=== PATIENT | female | born 1950 | race Caucasian/White ===

== ENCOUNTER → 2019-02-26 | Outpatient (CLI) | payer MEDICARE ==
[~2019-02-26] MED LIST: DULO30 PO; ESTR1; ETOD400 PO; LEVSOD25; MELATONIN 1 MG1 EACH; PROACE100 PO; RXPROACE PO; Synthroid/Lev0.15 MG PO; ZORVOLEX35 MG PO
== END | disposition home or self-care (01) ==
LOC: LAB SHORT 10:46 → LAB 10:46
DX: R30.9 Painful micturition, unspecified (principal)
CPT/HCPCS: 87077; 87086; 87186

== ENCOUNTER → 2019-04-17 | Outpatient (CLI) | payer MEDICARE | LOC: LAB SHORT 17:46 → LAB 17:46 | DX: R30.0 Dysuria (principal) | CPT/HCPCS: 87077; 87086; 87186 ==

== ENCOUNTER → 2019-06-22 | Outpatient (CLI) | payer MEDICARE | END | disposition home or self-care (01) | LOC: LAB 19:36 → LAB SHORT 19:36 | DX: R82.79 Other abnormal findings on microbiological examination of urine (principal) | CPT/HCPCS: 87077; 87086; 87186 ==

== ENCOUNTER → 2020-12-17 | Outpatient (CLI) | payer MEDICARE ==
[2020-12-18 14:06] LABS: Stool Occult Bld Immuno 1 Negative (NEGATIVE)
== END | disposition home or self-care (01) ==
LOC: LAB SHORT 07:00
PROVIDERS: Family Medicine
DX: Z12.11 Encounter for screening for malignant neoplasm of colon (principal)
CPT/HCPCS: G0328

== ENCOUNTER 2021-03-13 10:14 | Day surgery (SDC) | payer MEDICARE ==
[~2021-03-13] VITALS: Ht 160 cm; Wt 86.9 kg
== END 2021-03-13 12:40 | disposition home or self-care (01) ==
LOC: ORSCSDS 10:14
PROVIDERS: Internal Medicine Gastroenterology
PROC: 0DBN8ZX Excision of Sigmoid Colon, Via Natural or Artificial Opening Endoscopic, Diagnostic (ICD-10-PCS; principal; 2021-03-13 11:30)
DX: Z12.11 Encounter for screening for malignant neoplasm of colon (principal); Z86.010 Personal history of colon polyps; K63.5 Polyp of colon; K57.32 Diverticulitis of large intestine without perforation or abscess without bleeding; K64.8 Other hemorrhoids; Z87.891 Personal history of nicotine dependence; E66.01 Morbid (severe) obesity due to excess calories; Z68.34 Body mass index [BMI] 34.0-34.9, adult; Z79.899 Other long term (current) drug therapy
CPT/HCPCS: 88305; J0461; J2405; J2704; J7120

== ENCOUNTER 2021-04-12 09:36 | Emergency (ER) | payer MEDICARE ==
[~2021-04-12] VITALS: Ht 160 cm; Wt 90.7 kg
[~2021-04-12 09:36] MED LIST changes: +EUTHYROX125 MCG PO; -Synthroid/Lev0.15 MG PO
[2021-04-12 10:50] LABS: BASOPHILS ABSOLUTE AUTO 0.05 K/mm3 (0.00-0.23); BASOPHILS PERCENT AUTO 1 % (0-2); EOSINOPHILS ABSOLUTE AUTO 0.07 K/mm3 (0.00-0.68); EOSINOPHILS PERCENT AUTO 1 % (0-6); Hematocrit 39.1 % (33.0-51.0); Hemoglobin 12.6 g/dL (11.5-16.0); IMMATURE GRAN ABSOLUTE AUTO 0.04 K/mm3 (0.00-0.10); IMMATURE GRAN PERCENT AUTO 1 % (0-1); LYMPHOCYTES ABSOLUTE AUTO 1.61 K/mm3 (0.84-5.20); LYMPHOCYTES PERCENT AUTO 23 % (21-46); MONOCYTES ABSOLUTE AUTO 0.54 K/mm3 (0.16-1.47); MONOCYTES PERCENT AUTO 8 % (4-13); Mean Corpuscular HGB Conc 32.2 g/dL (31.5-36.5); Mean Corpuscular Volume 90 fL (80-100); Mean Platelet Volume 9.3 fL (9.1-12.4); NEUTROPHILS ABSOLUTE AUTO 4.84 K/mm3 (1.96-9.15); NEUTROPHILS PERCENT AUTO 68 % (41-73); Platelet Count 282 K/mm3 (150-400); RDW Standard Deviation 45.9 fL (35.1-46.3); Red Blood Cell Count 4.35 M/mm3 (3.80-5.20); White Blood Cell Count 7.15 K/mm3 (4.00-11.30)
[2021-04-12 11:09] LABS: Alanine Aminotransfer (ALT/SGP 29 U/L (12-78); Albumin, Blood 4.1 g/dL (3.4-5.0); Albumin/Globulin Ratio 1.2 (0.8-1.8); Alk Phos 87 U/L (50-136); Anion Gap 4 mmol/L (6-16); Aspartate Aminotrans (AST/SGOT 17 U/L (12-37); Bilirubin, Total 0.8 mg/dL (0.1-1.0); Blood Urea Nitrogen 21 mg/dL (8-24); Bun/Creatinine Ratio 28.2 (12.0-20.0); CO2, Blood 27 mmol/L (21-32); Calcium, Blood 9.4 mg/dL (8.5-10.1); Chloride, Blood 109 mmol/L (98-108); Creatinine, Blood 0.74 mg/dL (0.40-1.00); Globulin, Blood 3.5 g/dL (2.2-4.0); Glomerular Filtration Rate >60 (60-); Glucose, Blood 101 mg/dL (70-99); Sodium, Blood 140 mmol/L (136-145); Total Protein, Blood 7.6 g/dL (6.4-8.2)
== END 2021-04-12 14:47 | disposition home or self-care (01) ==
LOC: ER 09:36
PROVIDERS: Physician Assistant
DX: I10 Essential (primary) hypertension (principal); Z88.2 Allergy status to sulfonamides; Z79.899 Other long term (current) drug therapy; Z88.0 Allergy status to penicillin; Z88.8 Allergy status to other drugs, medicaments and biological substances; Z88.1 Allergy status to other antibiotic agents
CPT/HCPCS: 36415; 71045; 80053; 84484; 85025; 93005; 93010; 99284-25

== ENCOUNTER → 2022-01-09 | Outpatient (CLI) | payer MEDICARE | END | disposition home or self-care (01) | LOC: LAB SHORT 15:00 → PLD 15:00 | DX: D22.5 Melanocytic nevi of trunk (principal); D03.39 Melanoma in situ of other parts of face | CPT/HCPCS: 88305 ==

== ENCOUNTER 2024-05-09 10:39 | Day surgery (SDC) | payer MEDICARE ==
[~2024-05-09] VITALS: Ht 160 cm; Wt 91.4 kg
[~2024-05-09 10:39] MED LIST changes: +Lactated Ringer's 1,000 ML IV ONE
[2024-05-09] MEDS ORDERED: Tranexamic Acid 100 ML IV ONE (10:40)
[2024-05-09] MEDS ORDERED: Lidocaine 2%-Epineph 1:200000 20 ML SDV ONE (10:51)
[2024-05-09] MEDS ORDERED: EPINEPhrine HCl 1 MG / ML 30ML Vial ONE (10:51)
[2024-05-09] MEDS ORDERED: CYMBALTA20 M2 PO (11:06)
[2024-05-09] MEDS ORDERED: MELATONIN (11:06)
[2024-05-09] MEDS ORDERED: LOSARTAN POTASS25 M2 PO (11:06)
[2024-05-09] MEDS ORDERED: VITAMIN B350 MG (11:07)
[2024-05-09] MEDS ORDERED: CENTRUM SILVER1 EAC2 PO (11:07)
[2024-05-09] MEDS ORDERED: VITAMIN B12500 MCG (11:07)
[2024-05-09] MEDS ORDERED: CALCIUM (11:08)
[2024-05-09] MEDS ORDERED: FentaNYL Citrate 50 MCG/ML 2 ML Injection ONE ×2 (11:12→12:02)
[2024-05-09] MEDS ORDERED: propofoL 20 ML IV ONE (11:12)
[2024-05-09] MEDS ORDERED: Lactated Ringer's 1,000 ML IV ONE (11:18)
[2024-05-09] MEDS ORDERED: Dexamethasone Sod Phos 10 MG/ML 1ML VIAL ONE (11:39)
[2024-05-09] MEDS ORDERED: Ketorolac Tromethamine 30mg Vial ONE (11:57)
[2024-05-09] MEDS ORDERED: Ondansetron HCl 2 MG / ML 2ML Vial ONE (12:02)
[2024-05-09] MEDS ORDERED: Sugammadex Sodium 200 MG/2ML SDV (100 MG/ML) ONE (12:05)
[2024-05-09] MEDS ORDERED: Naloxone HCl 0.4MG / ML 1ML Vial ONE (12:17)
--- NOTE | 2024-05-09 13:11 | NUR ---
05/09/24 1311 [place] Roman O2 TRIAL IN PACU. ON 15 L O2 BY OXIMIZER/FACE TENT. PT MAINTAINED 95% AND ABOVE FOR APPROX 10 MIN. PT MOVED TO STEPDOWN.
[2024-05-09 13:24] VITALS: BP 110/65
== END 2024-05-09 13:52 | disposition home or self-care (01) ==
LOC: ORSCSDS 10:39
DX: J34.2 Deviated nasal septum (principal); J34.3 Hypertrophy of nasal turbinates; I10 Essential (primary) hypertension; J44.9 Chronic obstructive pulmonary disease, unspecified; Z87.891 Personal history of nicotine dependence; E05.00 Thyrotoxicosis with diffuse goiter without thyrotoxic crisis or storm; E66.01 Morbid (severe) obesity due to excess calories; Z68.35 Body mass index [BMI] 35.0-35.9, adult; Z79.899 Other long term (current) drug therapy
CPT/HCPCS: J0171; J1100; J1885; J2310; J2405; J2704; J3010; J7120